=== PATIENT | female | born 1965 | race Caucasian/White ===

== ENCOUNTER 2016-07-04 14:30 | Outpatient (CLI) | payer MEDICAID | END 2016-07-04 14:31 | disposition home or self-care (01) | DX: M17.0 Bilateral primary osteoarthritis of knee (principal); M51.34 Other intervertebral disc degeneration, thoracic region; M51.36 Other intervertebral disc degeneration, lumbar region; M47.896 Other spondylosis, lumbar region; M41.83 Other forms of scoliosis, cervicothoracic region ==